=== PATIENT | male | born 1990 | race Caucasian/White ===

== ENCOUNTER 2017-04-07 19:13 | Emergency (ER) | payer MEDICAID ==
[~2017-04-07] VITALS: Ht 188 cm; Wt 109.0 kg
[2017-04-08] MEDS ORDERED: BACITRACIN ZINC OINT UDPKT TOP ONE (02:00)
[2017-04-08] MEDS ORDERED: HYDROCODONE/ACETAMINOPHEN 5/325MG TABLET PO ONE (02:00)
[2017-04-08] MEDS ORDERED: LIDOCAINE HCL 1% 20ML VIAL (Pyxis) INJ MC ONE (02:00)
[2017-04-08] MEDS ORDERED: TETANUS, DIPHTHERIA, PERTUSSIS VAC/PF 0.5ML (>7YR OLD) IM ONE (02:00)
[2017-04-08 03:41] VITALS: BP 110/66
== END 2017-04-08 03:41 | disposition home or self-care (01) ==
LOC: ER 19:13
DX: S81.012A Laceration without foreign body, left knee, initial encounter (principal); F12.10 Cannabis abuse, uncomplicated; W26.8XXA Contact with other sharp object(s), not elsewhere classified, initial encounter; Y93.89 Activity, other specified; Y92.89 Other specified places as the place of occurrence of the external cause; Y99.8 Other external cause status
CPT/HCPCS: 12002; 90471; 90715; 99283; J3490; X7700; Z7610

== ENCOUNTER 2017-04-17 01:05 | Emergency (ER) | payer MEDICAID ==
[~2017-04-17] VITALS: Ht 188 cm; Wt 109.0 kg
[2017-04-17] MEDS ORDERED: HYDROCODONE/ACETAMINOPHEN 5/325MG TABLET PO ONE (03:30)
[2017-04-17 05:34] VITALS: BP 121/79
== END 2017-04-17 05:38 | disposition home or self-care (01) ==
LOC: ER 01:05
DX: L03.115 Cellulitis of right lower limb (principal)
CPT/HCPCS: 99283; Z7610